=== PATIENT | female | born 2005 | race Caucasian/White ===

== ENCOUNTER → 2023-04-30 13:19 | Outpatient (CLI) | payer OTHER, SELFPAY ==
--- NOTE | ~2023-04-30 | US_ITS ---
EXAMINATION: US thyroid DATE: 04/30/2023 13:36 INDICATION: Goiter. TECHNIQUE: Multiple ultrasound images of the thyroid were obtained. COMPARISON: None. FINDINGS: The right thyroid lobe measures 3.9 x 1.4 x 1.2 cm. The left thyroid lobe measures 4.0 x 1.3 x 1.5 c m. There is normal echotexture and echogenicity throughout the thyroid gland. No discrete nodules id entified. Normal vascular flow is present. IMPRESSION: 1. Normal thyroid. Reviewed, dictated and finalized at location A. [employer]PERATOR IMPRESSION: 1. Normal thyroid.
== END ==
PROVIDERS: PCP Internal Medicine; Visit Provider Internal Medicine
DX: E01.0 Iodine-deficiency related diffuse (endemic) goiter (principal)
CPT/HCPCS: 76536